=== PATIENT | male | born 1960 | race Two or more races ===

== ENCOUNTER 2024-03-01 12:36 | Emergency (ER) | payer MEDICAID, OTHER ==
[~2024-03-01] VITALS: Ht 182.9 cm; Wt 77.3 kg
[2024-03-01 13:35] VITALS: BP 111/74; PULSE 84; RESP 18; O2SAT 94
== END 2024-03-01 18:32 | disposition left against medical advice (07) ==
LOC: ER 12:36 → EDBD 12:36 → ER 18:32
DX: F10.10 Alcohol abuse, uncomplicated (principal); Z53.21 Procedure and treatment not carried out due to patient leaving prior to being seen by health care provider